=== PATIENT | female | born 1930 | race Caucasian/White ===

== ENCOUNTER → 2020-07-17 | Outpatient (CLI) | payer MEDICARE, OTHER ==
[~2020-07-17] MED LIST: ATIVAN1 MG PO; ATORVASTATIN CA40 MG PO; BENADRYL 25MG C25 MG PO; CALTRATE 600+D1 EAC1 PO; CARVEDILOL6.25 MG PO; CLARITIN10 M2 PO; HYDROCODON-ACE1 EAC4 PO; IPRAT-ALBUT 0.5-3 ML INH; LASIX40 MG PO; LEVOFLOXACIN500 MG PO; LISINOPRIL10 MG PO; METFORMIN HCL1000 MG PO; NITROSTAT0.4 MG SL; NORVASC5 MG PO; TRICOR 48 MG TA48 MG PO; VENTOLIN HFA 66.7 GM INH; VITAMIN D21250 MCG PO; XARELTO 15 MG T15 MG PO
[2020-07-17 11:20] LABS: HEMOGLOBIN 14.2 gm/dl (12.3-15.3); RED BLOOD COUNT 4.35 M/UL (4.00-5.10); WHITE BLOOD COUNT 5.9 K/UL (4.5-11.0)
== END ==
LOC: LAB 10:41
PROVIDERS: Internal Medicine Cardiovascular Disease
DX: I35.0 Nonrheumatic aortic (valve) stenosis (principal); I05.0 Rheumatic mitral stenosis; I25.10 Atherosclerotic heart disease of native coronary artery without angina pectoris; I48.91 Unspecified atrial fibrillation; Z20.822 Contact with and (suspected) exposure to COVID-19
CPT/HCPCS: 36415; 71046; 80048; 85025; U0003

== ENCOUNTER → 2020-07-19 | Outpatient (CLI) | payer MEDICARE, OTHER | LOC: CATH 10:08 | DX: I35.0 Nonrheumatic aortic (valve) stenosis (principal); I25.10 Atherosclerotic heart disease of native coronary artery without angina pectoris; I48.19 Other persistent atrial fibrillation; I49.5 Sick sinus syndrome; I11.0 Hypertensive heart disease with heart failure; I50.22 Chronic systolic (congestive) heart failure; I27.20 Pulmonary hypertension, unspecified; I65.29 Occlusion and stenosis of unspecified carotid artery; I34.0 Nonrheumatic mitral (valve) insufficiency; R26.81 Unsteadiness on feet; E78.5 Hyperlipidemia, unspecified; E11.9 Type 2 diabetes mellitus without complications; Z79.01 Long term (current) use of anticoagulants; Z95.0 Presence of cardiac pacemaker; Z79.84 Long term (current) use of oral hypoglycemic drugs; Z82.49 Family history of ischemic heart disease and other diseases of the circulatory system; Z79.899 Other long term (current) drug therapy | CPT/HCPCS: 71045; 82962; 99152; 99153; C1751; C1769; C1894; J1644; J2250; J7030; Q9965 ==

== ENCOUNTER 2020-09-29 07:03 | Emergency (ER) | payer MEDICARE, OTHER ==
[~2020-09-29 07:03] MED LIST changes: -HYDROCODON-ACE1 EAC4 PO; -LEVOFLOXACIN500 MG PO; -NORVASC5 MG PO
[2020-09-29 08:46] LABS: HEMOGLOBIN 12.9 gm/dl (12.3-15.3); RED BLOOD COUNT 3.93 M/UL (4.00-5.10); WHITE BLOOD COUNT 9.7 K/UL (4.5-11.0)
[2020-09-29 09:09] LABS: BUN/CREATININE RATIO 31 (0-10)
[2020-12-03] MEDS ORDERED: NORVASC5 MG PO (08:46)
[2020-12-03] MEDS ORDERED: HYDROCODON-ACE1 EAC4 PO (10:25)
[2020-12-03] MEDS ORDERED: LEVOFLOXACIN500 MG PO (10:25)
== END 2020-09-29 11:36 | disposition home or self-care (01) ==
LOC: ER1 07:03
PROVIDERS: Family Medicine
DX: I10 Essential (primary) hypertension (principal); I48.91 Unspecified atrial fibrillation; Z79.899 Other long term (current) drug therapy; Z95.2 Presence of prosthetic heart valve
CPT/HCPCS: 71045; 80053; 81001; 82550; 82553; 83874; 84484; 85025; 93005; 99284

== ENCOUNTER → 2020-11-29 | Outpatient (CLI) | payer MEDICARE, OTHER ==
[~2020-11-29] MED LIST changes: +HYDROCODON-ACE1 EAC4 PO; +LEVOFLOXACIN500 MG PO; +NORVASC5 MG PO
[2020-11-29 13:26] LABS: HEMOGLOBIN 12.6 gm/dl (12.3-15.3); RED BLOOD COUNT 3.84 M/UL (4.00-5.10); WHITE BLOOD COUNT 6.5 K/UL (4.5-11.0)
== END ==
LOC: LAB 12:59
PROVIDERS: Internal Medicine Cardiovascular Disease
DX: Z45.010 Encounter for checking and testing of cardiac pacemaker pulse generator [battery] (principal); I49.5 Sick sinus syndrome; I44.2 Atrioventricular block, complete; Z20.822 Contact with and (suspected) exposure to COVID-19
CPT/HCPCS: 36415; 71046; 80048; 85025; U0003

== ENCOUNTER → 2020-12-03 | Outpatient (CLI) | payer MEDICARE, OTHER | LOC: CATH 07:28 | DX: Z45.010 Encounter for checking and testing of cardiac pacemaker pulse generator [battery] (principal); I48.0 Paroxysmal atrial fibrillation; R55 Syncope and collapse; Z95.2 Presence of prosthetic heart valve; I49.5 Sick sinus syndrome; I25.10 Atherosclerotic heart disease of native coronary artery without angina pectoris; I73.9 Peripheral vascular disease, unspecified; I44.2 Atrioventricular block, complete; I27.20 Pulmonary hypertension, unspecified; E78.5 Hyperlipidemia, unspecified; I11.0 Hypertensive heart disease with heart failure; I50.22 Chronic systolic (congestive) heart failure; J44.9 Chronic obstructive pulmonary disease, unspecified | CPT/HCPCS: 33213; 82962; 99152; 99153; C1785; J2250; J3010; J3370; J7040; J7050 ==